=== PATIENT | female | born 1985 | race Caucasian/White ===

== ENCOUNTER 2021-05-12 19:00 | Inpatient (IN) | payer OTHER, SELFPAY ==
[2021-05-12] VITALS (8 sets, daily range): BP systolic 136–171; BP diastolic 84–99; PULSE 80–98; TEMP 36.3; O2SAT 97; BMI 50.1
[2021-05-12 20:06] LABS: Absolute Lymphocyte Count 3.82 X10^3/uL (0.83-4.51); Absolute Neutrophil Count 8.4 X10^3/uL (2.0-7.7); Basophil# 0.02 X10^3/uL; Basophil% 0.2 % (0-1); Eosinophils% 0.8 % (0-5); Hemoglobin 12.1 g/dL (12.0-15.0); Lymphocyte # 3.82 X10^3/ul (0.83-4.51); Lymphocyte % 28.9 % (19-41); Mean Corp Hgb Conc 34.6 g/dL (32-36); Mean Corpuscular Hgb 28.7 pg (27.0-32.0); Mean Corpuscular Volume 83.1 fL (81-99); Mean Platelet Vol. 11.5 fl (6.2-12.0); Monocyte# 0.74 X10^3/uL; Monocyte% 5.6 % (0-10); NRBC Flagged by Analyzer 0 % (0-5); Neutrophil # 8.42 X10^3/uL (2.7-7.7); Neutrophil % 63.7 % (47-70); Platelet Count 244 K/mm3 (150-450); RBC Distribution Width CV 14.6 % (11.6-14.6); RBC Distribution Width SD 43.8 fl (35.1-43.9); Red Blood Count 4.21 M/mm3 (4.2-5.4); White Blood Count 13.2 K/mm3 (4.4-11.0)
[2021-05-12] MEDS: Lactated Ringers 1,000 ML 50 ML IV (20:15)
[2021-05-12] MEDS: 0.9% Normal Saline Single 100 ML IV.SOLN. INTRA-UTER (20:30)
--- NOTE | 2021-05-12 20:44 | PCM.HP.OB ---
HPI - General General Date of Admission: 05/12/21 HPI Narrative TEZ MCNEILL, is a 35 F at 39.1 weeks that presents for induction of labor for obesity and elevated Inhibin A. Maternal Data Information CHRISSIE Calculator Estimated Delivery Date Method Current WG Current Estimate 05/18/21 Manual 39w 1d PFSH PFS Home Medications Aspir-81 05/12/21 [History Last Taken Unknown] Prena-Tab 05/12/21 [History Last Taken Unknown] Zyrtec 05/12/21 [History Last Taken Unknown] omeprazole 05/12/21 [History Last Taken Unknown] Allergy/AdvReac Type Severity Reaction Status Date / Time Penicillins Allergy Unknown Verified 09/21/16 12:24 fexofenadine HCl AdvReac Other Verified 09/21/16 12:24 [From Skyla-D] pseudoephedrine HCl AdvReac Other Verified 09/21/16 12:24 [From Skyla-D] Social History Smoking Status: Never smoker History Elective abortions Hx Para 0 Spontaneous abortions Hx # Term Pregnancies Ectopic pregnancies Hx # Pregnancies Multiple births # of living children NST FHR Rate Baby A Baseline: 130 Variability:: Moderate Accelerations:: 15 x 15 Decelerations:: None NST Reactive:: Yes FHR Category:: Category I Uterine Activity:: none ROS Eyes Eyes: Denies blurry vision, change in vision or spots in vision ENT HEENT: Denies dizziness or headache(s) Cardiovascular Cardiovascular: Denies abdominal pain, chest pain or dyspnea Respiratory/Chest Respiratory/Chest: Denies cough, dyspnea, shortness of breath at rest or shortness of breath with exertion Gastrointestinal Gastrointestinal: Denies abdominal pain, diarrhea or vomiting Genitourinary Genitourinary: Denies change in urinary stream, difficulty urinating or dysuria Musculoskeletal Musculoskeletal: Reports none Integumentary Integumentary: Denies rash Neurologic Neurologic: Denies dizziness, headache(s), memory loss or weakness Psychiatric Psychiatric: Reports none Vital Signs Vital Signs Vital Signs: 05/12/21 19:56 05/12/21 20:33 Pulse Rate 89 97 Blood Pressure 158/95 H 136/95 H BP Systolic 158 136 BP Diastolic 95 95 Weight Weight: 292 lb 5.327 oz Body Mass Index (BMI) 50.1 Physical Exam Const alert, oriented x3 and no apparent distress General Appearance: cooperative Orientation / Consciousness: awake Exam Limitations: no limitations HEENT normocephalic Head and Scalp: normal to inspection Eyes General Eye: normal appearance of both eyes Neck full ROM and no lymphadenopathy Lymph Lymphatic: no lymphadenopathy noted Chest inspection of chest normal Resp normal respiratory effort, normal air movement and clear to auscultation bilaterally Effort and Inspection: able to speak in complete sentences and symmetric chest movement Cardio regular rate and regular rhythm GI normal to inspection, nondistended, normoactive bowel sounds Manual OB Exam: dilated 1, effaced 60 and station -2 Back/Spine normal ROM Extremity full ROM and no calf tenderness Skin no rashes or lesions noted General Skin Exam: no breakdown Neuro oriented x3 and CN's II-XII intact bilaterally Psych mental status grossly normal and thought process normal Labs Labs Labs: Blood Type Pending Antibody Screen Pending Hct 35.0 % (37-47) L Hgb 12.1 g/dL (12.0-15.0) O+ Rubella- immune HB neg HC- neg RPR- NR HIV- NR GC/Ch- neg GBS neg Assessment & Plan (1) 39 weeks gestation of : (2) Encounter for induction of labor: (3) High serum inhibin A: (4) Obesity complicating : QUALIFIERS: Trimester: third trimester Qualified Code(s): O99.213 - Obesity complicating , third trimester (5) History of depression: (6) History of anxiety: PLAN: Admit to labor and delivery Routine labs Start IV and run fluids per orders CE- 1/60/-2 Dalton bulb placed without incident and filled with 30 cc N/S Cytotec 25 mcg PO x 1 now Nursing to call with next exam BP to be monitored due to initial elevated BP Dr. Grimes notified of admission and is collaborating physician
[2021-05-12] MEDS: miSOPROStol 25 MCG TABLET PO (21:04)
[2021-05-12] MEDS: 0.9% Saline Lock 10 ML Syringe IV (21:04)
[2021-05-12 22:26] LABS: ALB/GLOB Ratio 0.6 RATIO (0.9-2.4); AST(SGOT) 14 U/L (15-37); Alanine Aminotransfer ALT/SGPT 17 U/L (13-56); Albumin, Serum 2.4 g/dL (3.2-5.0); Alkaline Phosphatase 165 U/L (45-117); Anion Gap 7 (5-15); BUN 10 mg/dL (7-18); BUN/Creat Ratio 19.2 RATIO (10-20); Calcium,Total 9.1 mg/dL (8.5-10.1); Chloride 112 mmol/L (98-107); Creatinine, Serum 0.52 mg/dL (0.55-1.02); EST Glomerular Filtration Rate 143 mL/min (>60); Est Glom Filt Rate - Afr Amer 173 mL/min (>60); Estimated Creatinine Clearance 131.64 ml/min; Glucose 95 mg/dL (74-106); Protein, Total 6.4 g/dL (6.4-8.2); Sodium Level 137 mmol/L (136-145); Uric Acid 4.6 mg/dL (2.6-6.0)
[2021-05-12 23:50] LABS: Protein, Urine (Random) 76.3 mg/dL (<11.9); Protein:Creat Ratio 311 mg/g CRE (0-200)
[2021-05-13] VITALS (29 sets, daily range): BP systolic 89–149; BP diastolic 50–94; PULSE 75–116; RESP 16–18; TEMP 36.3–37.1; O2SAT 84–100
[2021-05-13] MEDS: Mag Hydrox/Al Hydrox/Simeth 30 ML UDC PO (00:53)
[2021-05-13] MEDS: Acetaminophen 500 MG Tablet PO (00:53)
[2021-05-13] MEDS: Oxytocin 30 units/NS 500 ml 30 UNITS/500 ML IV.SOLN IV (01:22)
[2021-05-13] MEDS: Lactated Ringers 500 ML 999 ML IV (03:57)
--- NOTE | 2021-05-13 04:31 | PCM.PN.BLA ---
Progress Note Called to patient's room for evaluation. S.R.O.M for large amount of clear fluid at 0354. RN unsure of presenting part. Physical Exam Narrative CE completed and non vertex presenting part noted as previously felt. CE Unable to determine position due to maternal pain with exam. Dr. Grimes notified and in route for evaluation. Assessment & Plan Assessment/Plan (1) Spontaneous rupture of amniotic membranes:
[2021-05-13] MEDS: Oxytocin 30 units/NS 500 ml 30 UNITS/500 ML IV.SOLN 334 UNITS IV (05:07)
--- NOTE | 2021-05-13 05:15 | PLAC_PTH ---
PATIENT: TEZ MCNEILL LOC: [facility] U#:[id number] AGE/SX: 35/F ROOM: WP016 RE05/12/[address]: Dr. Sadie Grimes DO : 1985 BED: 1 DIS: 05/15/2021 SPEC #: [id number] RECD: 05/13/21 10:26 STATUS: VETO REAnthony #: [id number] GARY: 05/13/21 05:[address]: Sadie Grimes DEPT: SURGICAL PATHOLOGY RECD BY: Rose Marie Nicole ENTERED: 05/13/21 12:01 SP TYPE: PLACENTA OTHR DR: SIMONE Del Toro Dr., MD Tissues: Placenta, NOS Procedures: Surgery Specimen Level V HEADER OPERATION: Vaginal delivery PRE-OP DIAGNOSIS: Labor TISSUE SUBMITTED: Placenta MICROSCOPIC DIAGNOSIS Placenta: Placental disc - third trimester placenta (447 gm). - Focal area of intervillous and perivillous fibrin deposition (1 cm in greatest dimension). Membranes ? focal mild acute chorioamnionitis. Umbilical cord - three blood vessels and no pathologic diagnosis. SJ:judith 05/15/2021 MICROSCOPIC DESCRIPTION Slides are reviewed. GROSS DESCRIPTION SPECIMEN: PLACENTA / CLINICAL INFORMATION: A. Weight: 2.605 kg B. Gestational Age: 39 weeks C. Sex: Male PLACENTAL WEIGHT (POST FIXATION): 447 gm PLACENTAL DIMENSIONS: 16 x 16 x 3 cm PLACENTAL SHAPE: Usual ovoid PLACENTAL WEIGHT FOR GESTATIONAL AGE: Within 10-99th percentile MEMBRANES - Present A. Insertion: Marginal B. Site of rupture from edge: 7 cm from edge of placental disc C. Color of membrane: Damon-steve D. Abnormalities: None UMBILICAL CORD - Present A. Color: Damon-steve B. Insertion: Paracentral C. Length: 58 cm D. Diameter: 1.2 cm E. Number of vessels: Three F. Abnormalities: None PLACENTAL DISC - Present A. Color of surface: Damon-steve B. surface abnormalities: None C. Maternal cotyledons: Intact with minimal tears D. Attached retro placental clot: No clot E. Cut surface: Dark red and spongy F. Lesions: Sections reveal damon, indurated area measuring 1 cm in greatest dimension. G. Separate clot: Small amount of blood clots are noted at the edge of the body of the placenta. SECTIONS SUBMITTED: 1. Membrane roll 2. Cord, maternal end 3. Cord, end 4. Placental disc, and maternal surfaces, lesion 5. Placental disc, and maternal surfaces 6. Placental disc, and maternal surfaces BOOGIE:judith 05/14/2021 TC:2 CPT: 39203
--- NOTE | 2021-05-13 05:47 | PCM.OPRPT ---
Problems Associated Problem List Diagnoses (1) 39 weeks gestation of : (2) High serum inhibin A: (3) Obesity complicating : (4) History of depression: (5) History of anxiety: (6) Breech presentation: (7) Encounter for induction of labor: Report of Operation Date of Procedure: 05/13/21 Pre-Operative Diagnosis: 39 week gestation, single intrauterine , elevated inhibin A, obesity in , induction of labor, breech presentation Post-Operative Diagnosis: As above Surgery/Procedure Performed:: Breech vaginal delivery Description of Surgical Findings:: Indications: The patient was scheduled for a 39 week induction of labor given maternal obesity and elevated inhibin A in the . Her induction was started with an intracervical burns and Cytotec. She was then started on Pitocin. presentation was vertex in the office, as well as on admission to L&D. The patient then had spontaneous rupture of membranes, and on cervical evaluation after the CNM felt a hand presentation. I was then called and told that the hand was the presenting part. Upon my arrival the patient was in the OR, and the baby was footing breech presentation with both legs and feet completely out of the vagina, and at this time Dr. Lomax was called for assistance. Upon assessing the patient it was felt that a vaginal delivery was imminent. Discussed risks of a breech vaginal delivery with the patient. Findings: Footling breech presentation. Surgeon: Sadie Grimes refrigerator repair technician: Dami Type of Anesthesia: None Special Medications: None Specimen's removed: Placenta Drains: None - nurses were unable to place a burns in the bladder Estimated Blood Loss (mL): 100 Fluids Replaced: n/a Description of Procedure: I was called to the hospital to assess presentation of fetus after a hand and arm was palpated as the presenting part. Upon arrival the patient was in the OR, and both legs and feet were out of the vagina. My partner Dr. Lomax was then called for assistance. Vaginal examination was limited given presentation of infant, as well as patient's body habitus. The nurses moved the patient over to the OR bed, and attempted to place a Burns catheter in the bladder but were unable to. The abdomen was prepped for a section. FHT were reported to be around 50 bpm. At this point delivery was emergent and felt to be imminent. The patient was then placed in McRobert's and she began pushing with delivery of the 's body to the level of the shoulders spontaneously. The body and legs were wrapped in a towel. With gentle rotation the arms did not easily deliver. I swept my hand along the infant's left side to deliver the left arm with gentle pressure at the antecubital fossa. The same was performed on the right to delivery the right arm. At this time both arms were delivered, and the 's head did not easily deliver and was felt to be entrapped by an incompletely dilated cervix. At this point Dr. Lomax presented and was able to retract. See Dr. Lomax's note for delivery. Using Ornelas scissors I made a small incision at the vaginal mucosa/cervix where I was able to see to allow for delivery of the 's head. The cord was clamped and cut immediately and handed off to the awaiting nursery staff. Cord gases were sent. The placenta delivered and was sent to pathology. No vaginal or perineal lacerations were noted. The cervical incision was noted to be at the 12 o'clock position and about 1 cm in length. This was closed using 3-0 Vicryl in a running fashion. There was a small < 1 cm incision noted of the anterior vaginal mucosa and this was reapproximated with 3-0 Vicryl with a single stitch. A burns and vaginal packing was placed. Fundus was firm. Dr. Lomax assisted in retraction so that I was able to make a cervical incision, and she was then able to deliver the infants head. Grafts/Implants Used: None Complications None Admit VTE Documentation VTE Present on Admission: No
[2021-05-13] MEDS: Ibuprofen 600 MG Tablet PO ×3 (07:04→22:13)
[2021-05-13] MEDS: oxyCODONE 5 MG Tablet PO ×3 (07:27→20:29)
[2021-05-13] MEDS: Senna/Docusate Sodium 1 Tablet PO (07:28)
--- NOTE | 2021-05-13 09:38 | NURSING ---
cervical lac. repair
[2021-05-13] MEDS: Acetaminophen 500 MG Tablet 1000 MG PO ×2 (10:25→17:43)
[2021-05-13] MEDS: 0.9% Saline Lock 10 ML Syringe IV (10:25)
[2021-05-13 10:26] LABS: Pathology Specimen OB SEE PATHOLOGY REPORT
--- NOTE | 2021-05-13 10:45 | NURSING ---
matilde pads weighed since 05/13 for 198cc.
--- NOTE | 2021-05-13 12:11 | NURSING ---
cervical laceration with packing.
--- NOTE | 2021-05-13 12:35 | PCM.PN.BLA ---
Progress Note i was called and notified to that assistance was needed in the OR immediately for delivery. upon my arrival patient was in the operating room dorsolithotomy position. At this time the infant's legs buttocks and arms were delivered with head entrapment. At this time I took over from the vaginal standpoint of trying to deliver the head, Dr. Grimes assisted with suprapubic pressure. At this point I felt that the cervix was clamping down around the neck decision was made to make a small incision. Dr. Grimes then was able to assist me while I had my index finger in the mouth and trying to flex the head. My right hand was trying to assist with stretching the cervix creating visualization and flexing the baby's head. At this point once Dr. Grimes made a small incision in vaginal mucosa/cerivx there was enough give that I was able to deliver the head. The infant came out nonvigorous. The cord was clamped and immediately cut handed to the awaiting resuscitation team. Please see Dr. Grimes operative note and repair note for the rest of the delivery and repair.
--- NOTE | 2021-05-13 16:46 | NURSING ---
vaginal packing in place. no visualization of cervical/vaginal lac but bleeding appropriate
[2021-05-14] VITALS (11 sets, daily range): BP systolic 104–161; BP diastolic 50–106; PULSE 88–105; RESP 18; TEMP 36.5–37.1
[2021-05-14] MEDS: Acetaminophen 500 MG Tablet 1000 MG PO ×3 (00:54→16:27)
[2021-05-14] MEDS: Ibuprofen 600 MG Tablet PO ×3 (05:36→20:08)
[2021-05-14 08:45] LABS: Hematocrit 25.9 % (37-47); Hemoglobin 8.7 g/dL (12.0-15.0); Mean Corp Hgb Conc 33.6 g/dL (32-36); Mean Corpuscular Hgb 28.5 pg (27.0-32.0); Mean Corpuscular Volume 84.9 fL (81-99); Mean Platelet Vol. 11.5 fl (6.2-12.0); Platelet Count 225 K/mm3 (150-450); RBC Distribution Width SD 45.7 fl (35.1-43.9); Red Blood Count 3.05 M/mm3 (4.2-5.4); White Blood Count 14.2 K/mm3 (4.4-11.0)
--- NOTE | 2021-05-14 11:34 | NURSING ---
Dr. Blair in to patient's room at ~0900, vaginal packing removed. This nurse in to room to remove burns. Burns removed after 10 cc NS removed from burns bulb. Pt. noted to have old clotted blood sitting just outside of vagina at time of burns removal. Before this nurse able to empty burns and come back to bed, pt. reports feeling something large come out., and noted to have passed a relatively large clot of what appears to be old blood - dark red/purple in color. Removed this from bed, and pt. noted that she was passing another. This also removed from bed. Reported this to Dr. Blair - feels that it is old blood, but will continue to watch bleeding closely, and check CBC in am, and later this afternoon, prn. Pt. notified of this plan. Was eager to get up to bathroom and get cleaned up some. Reported feeling sick to her stomach when nursing back to room, but denies other s/s, and was very eager to get up and get cleaned up. Did well in bathroom with no c/o dizziness or lightheadedness. Would like to shower, and will do so later this afternoon if bleeding remains stable and she has no further s/s.
--- NOTE | 2021-05-14 11:44 | NURSING ---
Total weight of clots passed at ~0910 was 361 grams.
--- NOTE | 2021-05-14 13:06 | PCM.PN.OB ---
Subjective Subjective Patient feels well. Denies complaints. Objective Data Objective Data Vital Signs: Vital Signs Temp Pulse Resp BP Pulse Ox 98.8 F 88 18 123/75 H 99 05/14/21 08:10 05/14/21 08:10 05/14/21 08:10 05/14/21 08:10 05/13/21 20:32 Oxygen Delivery Method Room Air Weight: 292 lb 5.327 oz Body Mass Index (BMI) 50.1 Intake & Output: Intake and Output for Last 24 Hours 05/12/21 05/13/21 05/14/21 23:59 23:59 23:59 Intake Total 1524.47 / 1524.47 Output Total 700 / 700 600 / 600 Balance 824.47 / 824.47 -600 / -600 Lab / Micro Data Result Diagrams: 05/14/21 08:20 05/12/21 21:45 Labs: Laboratory Results - last 24 hr 05/14/21 08:20: WBC 14.2 H, RBC 3.05 L, Hgb 8.7 L, Hct 25.9 L, MCV 84.9, MCH 28.5, MCHC 33.6, RDW Std Deviation 45.7 H, RDW Coeff of Juanita 15.0 H, Plt Count 225, MPV 11.5 Micro: Microbiology 05/12/21 19:51 Nasal Secretion SARS-CoV-2 Antigen (Rapid) - Final Physical Exam Const alert, oriented x3 and no apparent distress HEENT normocephalic GI soft to palpation, non-tender and non-distended GI Narrative: fundus firm, mid & below umbilicus Narrative: Vaginal packing removed - scant dried blood on packing Extremity normal to inspection and no calf tenderness Assessment & Plan (1) care following vaginal delivery: COMMENT: PPD#1 PLAN: Vaginal packing removed & patient doing well RN to d/c burns Routine PP care (2) Anemia: COMMENT: PPD#1 PLAN: Hb = 8.7 Check repeat CBC tomorrow & start iron
--- NOTE | 2021-05-14 16:15 | CASEMGMT ---
Social Work Labor and Delivery Ocate Depression Screen completed and attached to this note. -DRU Rosas, CASH REGISTER REPAIRER
--- NOTE | 2021-05-14 16:15 | CASEMGMT ---
Social Work Assessment Labor and Delivery Unit Patient Address: [address], [place] [address] Phone number: [phone] Date of Referral: 05/13/2021 Time of Referral: 103 Referred By: Dr. Grimes Date of Intervention: 05.14.2021 Time of Intervention: 1615 Reason for Referral: Materna history of anxiety and depression History obtained from: medical records and mother of baby (MOB) Angella Oglesby; Father of baby (FOB) Dev Robertson present for part of conversation. Household composition: MOB, FOB and . Patient's parent/guardian status: MOB is a 35 year old female, to the FOB for the last 10 years. During private conversation MOB denies any form of domestic or intimate partner violence. [place] is the first for MOB and FOB. [place] baby boy, Irving, born 05.[birth year]21. Medical History: MOB is G1, P0 to 1 after delivering Irving. care started early at 5 weeks and adequate thereafter. Delivery breech presentation requiring cervical incision for delivery of 's head. Apgars 5 and 8 at 1 and 5 minutes of life. Educational Status: college. Financial Status: MOB works as corporate buyer. FOB runs the [employer] (formerly [employer]) and also has a clinical partner job at the [employer]. Supplies: MOB and FOB reports to have necessary supplies including safe sleep space and car seat. MOB is breast feeding. Childcare/Caregiver(s): MOB and FOB. Transportation: No issues. Programs/Agencies Involved: None. Children Services/Legal Issues: No history. Behavioral Health Issues: Mental Health History: MOB reports history of depression and anxiety. History of medication, but off of medications at this time. History of counseling with Antonino Mcleod at [facility] in [place]. No reported history of suicidal ideation, intent, or attempts. [place] [employer] depression screen completed this date. Score of 7, below the threshold for depression. Substance Use History: No history reported. Family History: Anxiety. Drug Screens: Maternal screen negative on 10.05.2021. Family/Social Stressors: Unplanned , but accepted. MOB admits was something to adjust to, as family dynamics had been MOB and FOB for 10 years. MOB reports to be happy about the baby and would not change anything. Unexpected and difficult delivery. Support Systems: FOB is reported by MOB as my person. MOB's mom is a support and FOB's father. [employer] and friends from anabaptism. Depression/Shaken Baby/Safe Sleeping: Reviewed safe sleeping, shaken baby and mood and anxiety disorders. Reviewed risk factors, as well that both mothers and fathers are at risk. ASSESSMENT: Met with MOB and FOB together and then alone with MOB. MOB and FOB both talkative together, MOB more so than FOB, but FOB actively participating in conversation. MOB and FOB cooperative, pleasant, and open to discussion. Parents report to have necessary supplies for infant and to have adequate support available. MOB and FOB both express openness to talking to the other should symptoms of depression and anxiety arise and/or become distressing. Processed experience. MOB expressed perception that while the experience did not go as planned, to be grateful the baby is born alive and doing well now. MOB reports the health of the baby, and of self are the most important. MOB expressed gratitude to providers and nursing staff for the care received during delivery and . Through conversation, MOB did acknowledge that while grateful, and feeling that coping well now MOB understands that after getting home emotions could exacerbate. MOB reports willingness to reach out for support should things become distressing at home. Explored with FOB how the FOB's experience was during delivery. FOB acknowledged that things got pretty intense and it was hard for FOB. Emotional support, encouragement, reflection offered. mood and anxiety disorder packet being provided. MOB and FOB receptive to further information for home going. MOB and FOB both attentive to during social work visit, Appropriate and gentle. MOB and FOB appear supportive of each other. MOB expressed thanks to this scenario writer for taking the time to check on the parents. PLAN: MOB and to home when ready. Resources for home going will be provided. -DRU Rosas, ALAN
[2021-05-14] MEDS: Ferrous Sulfate 325 MG Tablet PO (16:27)
[2021-05-14] MEDS: 0.9% Saline Lock 10 ML Syringe IV (16:28)
[2021-05-14 17:02] LABS: Hematocrit 26.6 % (37-47); Mean Corp Hgb Conc 33.8 g/dL (32-36); Mean Corpuscular Hgb 28.8 pg (27.0-32.0); Platelet Count 236 K/mm3 (150-450); RBC Distribution Width CV 14.9 % (11.6-14.6); RBC Distribution Width SD 45.7 fl (35.1-43.9); Red Blood Count 3.13 M/mm3 (4.2-5.4); White Blood Count 13.4 K/mm3 (4.4-11.0)
[2021-05-14 17:28] LABS: AST(SGOT) 23 U/L (15-37); Alanine Aminotransfer ALT/SGPT 18 U/L (13-56); Creatinine, Serum 0.53 mg/dL (0.55-1.02); EST Glomerular Filtration Rate 141 mL/min (>60); Est Glom Filt Rate - Afr Amer 170 mL/min (>60); Estimated Creatinine Clearance 129.15 ml/min; Uric Acid 5.5 mg/dL (2.6-6.0)
[2021-05-14] MEDS: Senna/Docusate Sodium 1 Tablet PO (20:08)
[2021-05-15 01:51] VITALS: BP 117/57; PULSE 94; RESP 16; TEMP 36.6
[2021-05-15 01:52] VITALS: BP 117/57; PULSE 94
[2021-05-15 07:48] VITALS: BP 125/74; PULSE 93; RESP 16; TEMP 36.7
--- NOTE | 2021-05-15 08:55 | PCM.PN.OB ---
Subjective Subjective Minimal pain. Average lochia. Denies headache or visual disturbances. Denies fevers or chills. Objective Data Objective Data Vital Signs: Vital Signs Temp Pulse Resp BP Pulse Ox 98.1 F 93 16 125/74 H 99 05/15/21 07:48 05/15/21 07:48 05/15/21 07:48 05/15/21 07:48 05/13/21 20:32 Oxygen Delivery Method Room Air Weight: 132.6 kg Body Mass Index (BMI) 50.1 Intake & Output: Intake and Output for Last 24 Hours 05/13/21 05/14/21 05/15/21 23:59 23:59 23:59 Intake Total 1524.47 / 1524.47 Output Total 700 / 700 600 / 600 Balance 824.47 / 824.47 -600 / -600 Lab / Micro Data Result Diagrams: 05/14/21 16:55 05/14/21 16:55 Labs: Laboratory Results - last 24 hr 05/14/21 16:55: WBC 13.4 H, RBC 3.13 L, Hgb 9.0 L, Hct 26.6 L, MCV 85.0, MCH 28.8, MCHC 33.8, RDW Std Deviation 45.7 H, RDW Coeff of Juanita 14.9 H, Plt Count 236, MPV 11.0 05/14/21 16:55: Creatinine 0.53 L, Estim Creat Clear Calc 129.15, Est GFR (MDRD) Af Amer 170, Est GFR (MDRD) Non-Af 141, Uric Acid 5.5, AST 23, ALT 18 Micro: Microbiology 05/12/21 19:51 Nasal Secretion SARS-CoV-2 Antigen (Rapid) - Final Physical Exam Const alert and no apparent distress Narrative: Fundus firm, below umbilicus. Assessment & Plan (1) care following vaginal delivery: COMMENT: PPD#2 PLAN: day #2 status post vaginal delivery of a breech with entrapped head. Patient's pain is well controlled. Hemoglobin is stable. Blood pressures are in the normal range today. No signs or symptoms of preeclampsia. Recommended patient monitor her blood pressure at home. Call or return for signs or symptoms of preeclampsia. Follow-up in the office early next week. Patient is comfortable with plan.
--- NOTE | 2021-05-15 08:56 | PCM.DC.SUM ---
Providers Date of Admission: 05/12/21 Primary Care Physician: KAYKAY ALANIZ Reason For Visit: VAGINAL DELIVERY Diagnosis Discharge Diagnosis (1) care following vaginal delivery: Status: Acute Code(s): Z39.2 - Encounter for routine follow-up Medications at Discharge Home Medications Prena-Tab 05/12/21 Zyrtec 05/12/21 omeprazole 05/12/21 Hospital Course Operations None Summary of Care Provided Hospital Course: Patient is a 35-year-old primigravida who is admitted for induction of labor. She had spontaneous rupture of membranes early on 11/02/2021. She then felt some pressure and was noted to be footling breech. By the time she was taken to the operating room and Dr. Grimes arrived, the infant was delivering. Patient then had a breech delivery of a single liveborn . By day #2 patient was ambulating, urinating tolerating regular diet without difficulty. was breast-feeding. Patient is to monitor her blood pressures at home and call or return for any signs or symptoms of preeclampsia. Otherwise follow-up early next week. Patient is comfortable with this plan. Weight / BMI Weight Weight: 132.6 kg Body Mass Index (BMI) 50.1 ABG / Lab / Microbiology Data Result Diagrams: 05/14/21 16:55 05/14/21 16:55 Laboratory: Laboratory Results - last 24 hr 05/14/21 16:55: WBC 13.4 H, RBC 3.13 L, Hgb 9.0 L, Hct 26.6 L, MCV 85.0, MCH 28.8, MCHC 33.8, RDW Std Deviation 45.7 H, RDW Coeff of Juanita 14.9 H, Plt Count 236, MPV 11.0 05/14/21 16:55: Creatinine 0.53 L, Estim Creat Clear Calc 129.15, Est GFR (MDRD) Af Amer 170, Est GFR (MDRD) Non-Af 141, Uric Acid 5.5, AST 23, ALT 18 Microbiology: Microbiology 05/12/21 19:51 Nasal Secretion SARS-CoV-2 Antigen (Rapid) - Final Meaningful Use Info Meaningful Use Diagnoses (Choose all that apply): None applicable Discharge Plan Admission Admit Date/Time: 05/12/21 19:00 Primary Reason for Your Visit: Vaginal delivery Attending Provider: Sadie Grimes Consulting Providers: Jacinda Felix Discharge Orders/Prescriptions Prescriptions: Continued Prena-Tab RF: 0 Zyrtec RF: 0 omeprazole RF: 0 Discontinued Aspir-81 RF: 0 Referrals / Follow Up: KAYKAY ALANIZ [Other] Disposition Disposition (needs filled in before D/C Order can be placed): Home, Self Care
--- NOTE | 2021-05-15 11:15 | CASEMGMT ---
Social Work Labor and Delivery MOB and baby slated for discharge today. Met with MOB. MOB reports the night went pretty well but baby was up a lot. MOB reports to be feeling well physically and ready for discharge. Provided MOB with packet on mood and anxiety disorders which includes online, texting, and counseling supports. No other services requested or indicated. -DAISY Rosas, ASSOCIATE PROFESSOR OF LITERACY
== END 2021-05-15 11:50 | disposition home or self-care (01) | DRG 807 ==
PROVIDERS: Obstetrics & Gynecology; Admitting Provider Advanced Practice Midwife; Visit Provider Obstetrics & Gynecology
DX: O32.8XX0 Maternal care for other malpresentation of fetus, not applicable or unspecified (principal); Z37.0 Single live birth; E66.9 Obesity, unspecified; F41.9 Anxiety disorder, unspecified; O99.344 Other mental disorders complicating childbirth; O99.213 Obesity complicating pregnancy, third trimester; Z3A.39 39 weeks gestation of pregnancy
CPT/HCPCS: 59050; 76815; 80053; 82565; 82570; 84156; 84450; 84460; 84550; 85025; 85027; 86850; 86900; 86901; 87426; 88307; 99218; J7120; A4216; G0378